=== PATIENT | male | born 1985 | race Caucasian/White ===

== ENCOUNTER 2019-05-19 12:03 | Emergency (ER) | payer OTHER ==
--- NOTE | 2019-05-19 12:36 | EDM.PDOC ---
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 and at approximately 11:30 AM, the patient was bending over setting up some equipment and a modest sized piece of ice fell from the smoke Stack that was 50-80 feet high and it struck him over his left lower back. He has pain in his left lower back and there is a scraped area and ecchymotic area in his left lower back from the point of impact. He reports the pain is a 3/10. It is a dull and numbing type pain. He has no abdominal pain. The pain does not radiate. Pain is worse with movement and with palpation. He is having no difficulty breathing. He has had no urine output since the incident occurred. There is been no hemoptysis and no chest pain. He had no antecedent problems. There are no other associated signs or symptoms. There are no other modifying factors. 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 Social & Family History - Tobacco Use Smoking Status *Q: Never Smoker - Alcohol Use Alcohol Use History: Yes Alcohol Use Frequency: Socially - Living Situation & Occupation Occupation: Employed Social History Comment: He is here with a coworker. ED ROS GENERAL - Review of Systems Review Of Systems: See Below Constitutional: Reports: No Symptoms HEENT: Reports: No Symptoms Respiratory: Reports: No Symptoms Cardiovascular: Reports: No Symptoms Endocrine: Reports: No Symptoms GI/Abdominal: Reports: No Symptoms : Reports: No Symptoms Musculoskeletal: Reports: Back Pain (Left mid and lower back pain) Skin: Reports: Bruising (Left mid and lower back), Wound (Area of impact from the ice on left mid and lower back.) Neurological: Reports: No Symptoms Hematologic/Lymphatic: Reports: No Symptoms Immunologic: Reports: Other (Patient feels that it has been less than 5 years since his last tetanus immunization) ED EXAM,LOWER BACK PAIN/INJURY - Physical Exam Exam: See Below Exam Limited By: No Limitations General Appearance: Alert, WD/WN, Anxious, Mild Distress Eye Exam: Bilateral Eye: EOMI, Normal Inspection, PERRL Ears: Normal External Exam, Hearing Grossly Normal Nose: Normal Inspection, Normal Mucosa, No Blood Throat/Mouth: Normal Inspection, Normal Lips, Normal Oropharynx, Normal Voice, No Airway Compromise Head: Atraumatic, Normocephalic Neck: Normal Inspection, Supple, Non-Tender, Full Range of Motion Respiratory/Chest: No Respiratory Distress, Lungs Clear, Normal Breath Sounds, No Accessory Muscle Use, Chest Non-Tender Cardiovascular: Normal Peripheral Pulses, Regular Rate, Rhythm, No Murmur GI/Abdominal: Normal Bowel Sounds, Soft, No Organomegaly, Tender (Along left flank just below the area of impact) Back Exam: Other (Area of ecchymosis and superficial abrasion over the left mid and lower back about volleyball size in diameter.) Extremities: Normal Inspection, Normal Range of Motion, Non-Tender, No Pedal Edema, Normal Capillary Refill Neurological: Alert, Normal Mood/Affect, Normal Dorsiflexion, CN II-XII Intact, Normal Plantar Flexion, No Motor/Sensory Deficits, Oriented x 3 Psychiatric: Anxious Skin Exam: Warm, Dry, Ecchymosis (As above), Wound/Incision (Abrasion as above) Course - Vital Signs Last Recorded V/S: Last Vital Signs Temp 37.2 C 05/19/19 12:03 Pulse 60 05/19/19 14:00 Resp 18 05/19/19 14:00 BP 130/74 05/19/19 14:00 Pulse Ox 100 05/19/19 14:00 - Orders/Labs/Meds Orders: Active Orders 24 hr Category Date Time Status Peripheral IV Insertion Adult [OM.PC] Routine Oth 05/19/19 12:50 Ordered Labs: Laboratory Tests 05/19/19 05/19/19 05/19/19 Range/Units 13:04 13:04 13:04 WBC 7.3 (4.5-12.0) X10-3/uL RBC 5.61 (4.30-5.75) x10(6)uL Hgb 16.4 (13.5-17.8) g/dL Hct 47.2 (30.0-51.3) % MCV 84.2 (80-96) fL MCH 29.3 (27.7-33.6) pg MCHC 34.8 (32.2-35.4) g/dL RDW 11.8 (11.5-15.5) % Plt Count 175 (125-369) X10(3)uL MPV 9.1 (7.4-10.4) fL Neut % (Auto) 71.9 (46-82) % Lymph % (Auto) 20.8 (13-37) % [place] % (Auto) 5.6 (4-12) % Eos % (Auto) 1 (1.0-5.0) % Baso % (Auto) 0 (0-2) % Neut # (Auto) 5.3 (1.6-8.3) # Lymph # (Auto) 1.5 (0.6-5.0) # [place] # (Auto) 0.4 (0.0-1.3) # Eos # (Auto) 0.1 (0.0-0.8) # Baso # (Auto) 0.0 (0.0-0.2) # Sodium 140 (135-145) mmol/L Potassium 3.7 (3.5-5.3) mmol/L Chloride 104 (100-110) mmol/L Carbon Dioxide 26 (21-32) mmol/L BUN 15 (7-18) mg/dL Creatinine 1.2 (0.70-1.30) mg/dL Est Cr Clr Drug Dosing TNP Estimated GFR (MDRD) > 60 (>60) BUN/Creatinine Ratio 12.5 (9-20) Glucose 103 (80-116) mg/dL Calcium 8.9 (8.6-10.2) mg/dL Total Bilirubin 0.5 (0.1-1.3) mg/dL AST 25 (5-25) IU/L ALT 35 (12-36) U/L Alkaline Phosphatase 65 (56-112) IU/L Total Protein 7.2 (6.0-8.0) g/dL Albumin 4.1 (3.5-5.2) g/dL Globulin 3.1 g/dL Albumin/Globulin Ratio 1.3 Lipase 179 (73-393) U/L Urine Color (YELLOW) Urine Appearance (CLEAR) Urine pH (5.0-6.5) Ur Specific Jerome (1.010-1.025) Urine Protein (NEGATIVE) mg/dL Urine Glucose (UA) (NORMAL) mg/dL Urine Ketones (NEGATIVE) mg/dL Urine Occult Blood (NEGATIVE) Urine Nitrite (NEGATIVE) Urine Bilirubin (NEGATIVE) Urine Urobilinogen (NEGATIVE) mg/dL Ur Leukocyte Esterase (NEGATIVE) Urine RBC (0-5) Urine WBC (0-5) Ur Squamous Epith Cells (NS,R,O) Urine Bacteria (NS) 05/19/19 Range/Units 14:44 WBC (4.5-12.0) X10-3/uL RBC (4.30-5.75) x10(6)uL Hgb (13.5-17.8) g/dL Hct (30.0-51.3) % MCV (80-96) fL MCH (27.7-33.6) pg MCHC (32.2-35.4) g/dL RDW (11.5-15.5) % Plt Count (125-369) X10(3)uL MPV (7.4-10.4) fL Neut % (Auto) (46-82) % Lymph % (Auto) (13-37) % [place] % (Auto) (4-12) % Eos % (Auto) (1.0-5.0) % Baso % (Auto) (0-2) % Neut # (Auto) (1.6-8.3) # Lymph # (Auto) (0.6-5.0) # [place] # (Auto) (0.0-1.3) # Eos # (Auto) (0.0-0.8) # Baso # (Auto) (0.0-0.2) # Sodium (135-145) mmol/L Potassium (3.5-5.3) mmol/L Chloride (100-110) mmol/L Carbon Dioxide (21-32) mmol/L BUN (7-18) mg/dL Creatinine (0.70-1.30) mg/dL Est Cr Clr Drug Dosing Estimated GFR (MDRD) (>60) BUN/Creatinine Ratio (9-20) Glucose (80-116) mg/dL Calcium (8.6-10.2) mg/dL Total Bilirubin (0.1-1.3) mg/dL AST (5-25) IU/L ALT (12-36) U/L Alkaline Phosphatase (56-112) IU/L Total Protein (6.0-8.0) g/dL Albumin (3.5-5.2) g/dL Globulin g/dL Albumin/Globulin Ratio Lipase (73-393) U/L Urine Color Yellow (YELLOW) Urine Appearance Clear (CLEAR) Urine pH 8.0 H (5.0-6.5) Ur Specific Jerome 1.010 (1.010-1.025) Urine Protein Negative (NEGATIVE) mg/dL Urine Glucose (UA) Normal (NORMAL) mg/dL Urine Ketones Negative (NEGATIVE) mg/dL Urine Occult Blood Moderate H (NEGATIVE) Urine Nitrite Negative (NEGATIVE) Urine Bilirubin Negative (NEGATIVE) Urine Urobilinogen Normal (NEGATIVE) mg/dL Ur Leukocyte Esterase Negative (NEGATIVE) Urine RBC 0-5 (0-5) Urine WBC 0-5 (0-5) Ur Squamous Epith Cells Few H (NS,R,O) Urine Bacteria Few H (NS) Meds: Medications Discontinued Medications Generic Name Dose Route Start Last Admin Trade Name Freq PRN Reason Stop Dose Admin Sodium Chloride 1,000 mls @ 999 mls/hr 05/19/19 13:00 05/19/19 13:15 Normal Saline IV 999 mls/hr ASDIRECTED YUMIKO Administration Iopamidol 100 ml 05/19/19 13:24 05/19/19 13:30 Isovue-370 (76%) IV 05/19/19 13:25 100 ml . DIRECTED ONE Administration Sodium Chloride 10 ml 05/19/19 12:50 05/19/19 13:14 Saline Flush FLUSH 10 ml ASDIRECTED PRN Administration Keep Vein Open - Radiology Interpretation Free Text/Narrative:: CT of abdomen and pelvis shows no acute intra-abdominal process. There are L1, L2, L3 and L4 left transverse process fractures. This was per Dr. Villarreal. - Re-Assessments/Exams Free Text/Narrative Re-Assessment/Exam: 05/19/19 15:28: Patient has remained vitally stable. His blood tests are all reassuringly normal. His urine test which just came back was negative. He does have L1-L4 left transverse process fractures with associated soft tissue injury to the left lower back. I will prescribe the patient hydrocodone for more severe pain. He can take ibuprofen for pain as well. No work for the next 3 days and then light duty work for the next week. Departure - Departure Time of Disposition: 15:35 Disposition: Home, Self-Care 01 Condition: Good Clinical Impression: Closed fracture of transverse process of lumbar vertebra Qualifiers: Encounter type: initial encounter Qualified Code(s): S32.009A - Unspecified fracture of unspecified lumbar vertebra, initial encounter for closed fracture Contusion of left side of back Qualifiers: Encounter type: initial encounter Qualified Code(s): S20.222A - Contusion of left back wall of thorax, initial encounter Abrasion of left side of back Qualifiers: Encounter type: initial encounter Qualified Code(s): S20.412A - Abrasion of left back wall of thorax, initial encounter - Discharge Information Prescriptions: Hydrocodone/Acetaminophen [Jordan 5-325 Tablet] 1 - 2 tab PO Q6H PRN #16 tablet PRN Reason: Moderate to severe pain Instructions: Contusion, [id number], Abrasion, [id number], Vertebral Fracture, [id number] Referrals: PCP,None [Primary Care Provider] - Forms: ED Return to Work/School Form Additional Instructions: You do not appear to have any injury to any of your internal organs. You do have fractures of the lateral spines of the first through the fourth lumbar back bones. These do not require any specific treatment. They will have to heal on their own. They are, however, quite painful and will limit your ability to work. I have given you off of work for the next 3 days and then duty for the next week after you return to work. You may take ibuprofen 800 mg by mouth every 8 hours as needed for pain. Medication as prescribed for more severe pain (hydrocodone 5/325). You should clean the wound on your back with soap and water and apply a dressing and bacitracin until the wound has scabbed over. Activity as tolerated but you should avoid heavy lifting, bending, pushing or pulling for the next 1-1/2 weeks. Ambulate as tolerated. Follow-up with your primary doctor as needed. Back to the emergency department for marked increase in pain, abdominal pain, urinating blood, coughing of blood, trouble breathing or any other concerning sign or symptom. - My Orders Last 24 Hours: My Active Orders 05/19/19 12:50 Peripheral IV Insertion Adult [OM.PC] Routine - Assessment/Plan Last 24 Hours: My Active Orders 05/19/19 12:50 Peripheral IV Insertion Adult [OM.PC] Routine
[2019-05-19] MEDS: Sodium Chloride 0.9% 10 ML Syringe FLUSH PRN (13:14)
[2019-05-19] MEDS: Sodium Chloride 0.9% 1,000 ML IV SCH (13:15)
[2019-05-19] MEDS: Iopamidol 755 Mg/ML 100 ML Bottle IV ONE (13:30)
--- NOTE | 2019-05-19 15:22 | CT ---
INDICATION: Left flank injury with pain/large piece of ice fell 80 feet off of roof and hit the patient in the lower left back. CT ABDOMEN AND PELVIS WITH CONTRAST: Spiral 3.75 mm axial sections were obtained through the abdomen and pelvis with 100 mL Isovue 370 at 2 mL/second, with sagittal and coronal reconstructions, 05/19/19 - no comparisons. Total exam DLP = 667.51 mGy-cm. Lower lung alonso and pleural spaces visualized showed no evidence of pneumothorax, effusion, contusion, or infiltrate. The liver, spleen, kidneys, adrenal glands, retroperitoneum, and pancreas appear normal with no retroperitoneal mass or retroperitoneal fluid collection. No evidence of abdominal ascites, free air, or bowel obstruction was seen. The appendix appeared normal, visualized on axial images #56 through #71 and coronal images #35 through #42. Urinary bladder had a normal appearance. A mild dextroconvex scoliosis of the upper middle lumbar spine is noted. At the left-sided transverse processes of L1, L2, L3, and L4, there are fracture sites with varying degrees of distraction, most severe at L3 as to distraction. There is also some prominence of the iliopsoas muscle in the area of the fractures, compatible with edema and/or bleeding in those areas. No intraperitoneal sign of posttraumatic change was seen. IMPRESSION: Left-sided transverse process fracture is noted with varying degrees of distraction at L1 through L4. Prominence of the iliopsoas in that area likely represents edema and/or hemorrhage. Mild dextroconcave scoliosis also likely is on that basis. Availability of this report was called to ER at 1359 hours on 05/19/19. Dr. Jyoa will return my call when available. [facility]ENTERGriffin
== END 2019-05-19 16:02 | disposition home or self-care (01) ==
LOC: FB.ED 12:03
DX: S32.009A Unspecified fracture of unspecified lumbar vertebra, initial encounter for closed fracture (principal); S20.412A Abrasion of left back wall of thorax, initial encounter; S20.222A Contusion of left back wall of thorax, initial encounter; Z88.0 Allergy status to penicillin; W20.8XXA Other cause of strike by thrown, projected or falling object, initial encounter
CPT/HCPCS: 36415; 74177; 80053; 81001; 83690; 85025; 96360; 99283-25; J7030; Q9967